=== PATIENT | female | born 1955 | race Caucasian/White ===

== ENCOUNTER 2016-10-14 02:41 | Emergency (ER) | payer MEDICAID ==
[~2016-10-14] VITALS: Ht 157.5 cm; Wt 71.8 kg
[2016-10-14 05:18] VITALS: BP 129/75
== END 2016-10-14 05:18 | disposition home or self-care (01) ==
LOC: ED 02:41
DX: G43.909 Migraine, unspecified, not intractable, without status migrainosus (principal); R20.2 Paresthesia of skin; I10 Essential (primary) hypertension; R20.0 Anesthesia of skin
CPT/HCPCS: J1885